=== PATIENT | female | born 1990 | race Caucasian/White ===

== ENCOUNTER 2022-04-02 15:27 | Emergency (ER) | payer BC ==
[~2022-04-02] VITALS: Ht 154.9 cm; Wt 79.0 kg
[2022-04-02] MEDS ORDERED: KEFLEX500 MG PO (18:57)
[2022-04-02 19:20] VITALS: BP 115/78
== END 2022-04-02 19:21 | disposition home or self-care (01) | DRG 605 ==
LOC: ED 15:27
PROC: 0HQGXZZ Repair Left Hand Skin, External Approach (ICD-10-PCS; principal; 2022-04-02)
DX: S61.412A Laceration without foreign body of left hand, initial encounter (principal); W10.9XXA Fall (on) (from) unspecified stairs and steps, initial encounter; Y92.008 Other place in unspecified non-institutional (private) residence as the place of occurrence of the external cause; Z87.820 Personal history of traumatic brain injury